=== PATIENT | male | born 1965 | race Caucasian/White ===

== ENCOUNTER → 2017-10-16 | Outpatient (CLI) | payer OTHER ==
--- NOTE | 2017-10-17 08:09 | US ---
Exam: Bilateral lower extremity arterial Doppler sonogram CLINICAL HISTORY: Peripheral vascular disease, diabetes TECHNIQUE: Doppler sonographic evaluation of the bilateral lower extremities was performed. FINDINGS: Right Submitted sonographic images reveal mild arteriosclerotic plaque in the superficial femoral artery with widely right lower extremity patent vessels. The following peak systolic flow flow velocity measurements were obtained: Common femoral artery velocity equals 68 centimeters per second , triphasic. Superficial femoral artery velocity equals 95 08/21/2002 centimeters per second , triphasic. Popliteal artery velocity equals 58 centimeters per second , triphasic. Peroneal artery velocity equals 64 centimeters per second , triphasic. Posterior tibial artery velocity equals 79 centimeters per second , triphasic. Dorsalis pedis artery velocity equals 79 centimeters per second , triphasic. Left Submitted sonographic images reveal normal color flow within the arteries of left lower extremity. Minimal plaque in the left superficial femoral artery without stenosis. Triphasic flow is seen throughout. The following peak systolic flow flow velocity measurements were obtained: Common femoral artery velocity equals 86 centimeters per second , triphasic. Superficial femoral artery velocity equals 7293 centimeters per second , triphasic. Popliteal artery velocity equals 63 centimeters per second , triphasic. Peroneal artery velocity equals 85 centimeters per second , triphasic. Posterior tibial artery velocity equals 74 centimeters per second , triphasic. Dorsalis pedis artery velocity equals 104 centimeters per second , triphasic. IMPRESSION: Normal triphasic flow in the lower extremity arteries with no significant stenosis. Electronically signed by: Schuyler Kitchen MD 10/17/2017 8:07 AM CDT
== END ==
LOC: US 08:05
PROVIDERS: ATTEND Family Medicine
DX: E11.51 Type 2 diabetes mellitus with diabetic peripheral angiopathy without gangrene (principal); I73.9 Peripheral vascular disease, unspecified

== ENCOUNTER → 2017-12-09 | Outpatient (CLI) | payer OTHER | LOC: GMAM 16:19 | PROVIDERS: ATTEND Family Medicine | DX: I50.22 Chronic systolic (congestive) heart failure (principal) ==

== ENCOUNTER → 2017-12-30 | Outpatient (CLI) | payer OTHER | LOC: GMAM 14:49 | PROVIDERS: ATTEND Family Medicine | DX: Z12.5 Encounter for screening for malignant neoplasm of prostate (principal) ==

== ENCOUNTER → 2018-06-19 | Outpatient (CLI) | payer OTHER ==
--- NOTE | 2018-06-19 09:10 | CT ---
EXAM DESCRIPTION: CT right elbow CLINICAL HISTORY: S42.422A. Fracture. Fall injury with elbow pain COMPARISON: None Available. TECHNIQUE: Spiral CT with multiplanar reformatted images. 3-D reconstructions This exam was performed according to our departmental dose-optimization program, which includes automated exposure control, adjustment of the mA and/or kV according to patient size and/or use of iterative reconstruction technique. FINDINGS: Highly comminuted fracture of the distal humeral metaphysis. Comminution at the metaphysis exiting the circumference of the metaphysis. Vertical intra-articular extension through the epiphysis at the articular margin with the ulna. No fracture involvement of the subchondral cortex of the radiocapitellar or ulnar trochlear articular surface otherwise. A small fragment of the humerus is impacted and overlap anteriorly in contact with the anterior margin of the radial head sagittal reformat image 33 Joint line osteophytes medial ulna trochlear articulation No fracture of the radius or ulna Large joint effusion IMPRESSION: Comminuted distal humeral fracture with intra-articular extension at the lateral margin of the ulnar trochlear articulation Electronically signed by: Torsten Johnson MD 06/19/2018 9:09 AM [facility]
== END ==
LOC: CT 08:08
PROVIDERS: ATTEND Orthopaedic Surgery
DX: S42.422A Displaced comminuted supracondylar fracture without intercondylar fracture of left humerus, initial encounter for closed fracture (principal)

== ENCOUNTER → 2019-01-26 | Outpatient (CLI) | payer OTHER | LOC: GMAM 14:21 | PROVIDERS: ATTEND Family Medicine | DX: Z12.5 Encounter for screening for malignant neoplasm of prostate (principal); I10 Essential (primary) hypertension; E11.9 Type 2 diabetes mellitus without complications ==

== ENCOUNTER 2019-05-10 05:37 | Day surgery (SDC) | payer OTHER ==
[2019-05-10] MEDS ORDERED: MOXIFLOXACIN HCL (OPHTH) 1 DROP DROPS ONE (05:56)
[2019-05-10] MEDS ORDERED: PROPARACAINE 0.5% OPHTH SOL 15 ML BTTL ONE (05:56)
[2019-05-10] MEDS ORDERED: TROP 1%/CYCLOPEN 1%/PHENYL 2% DROPS ONE (05:56)
[2019-05-10] MEDS ORDERED: MIDAZOLAM INJ 2 MG/2 ML VIAL ONE (10:11)
[2019-05-10] MEDS ORDERED: PROPARACAINE 0.5% OPHTH SOL 15 ML BTTL RIGHT_EYE ONE (10:18)
[2019-05-10] MEDS ORDERED: MOXIFLOXACIN HCL (OPHTH) 1 DROP DROPS RIGHT_EYE ONE ×2 (10:28→10:47)
[2019-05-10] MEDS ORDERED: DEXAMETHASONE 0.1% OPHTH SOL 1 DROP RIGHT_EYE ONE ×2 (10:29→10:48)
[2019-05-10] MEDS ORDERED: TOBRAMYCIN-DEXAMETH OPHTH SOL 1 DROP RIGHT_EYE ONE ×2 (10:29→10:48)
[2019-05-10] MEDS ORDERED: BRIMONIDINE 0.2% OPHTH DROPS RIGHT_EYE ONE ×2 (10:30→10:48)
[2019-05-10] MEDS ORDERED: LIDOCAINE 1% 2 ML VIAL INJ ONE (10:31)
== END 2019-05-10 11:44 | disposition home or self-care (01) ==
LOC: AMB 05:37
PROVIDERS: ATTEND Ophthalmology
DX: E11.36 Type 2 diabetes mellitus with diabetic cataract (principal); H25.041 Posterior subcapsular polar age-related cataract, right eye; I10 Essential (primary) hypertension; Z88.8 Allergy status to other drugs, medicaments and biological substances; Z79.899 Other long term (current) drug therapy
CPT/HCPCS: 00142; 36415; 36416; 66984; 82948; J2250

== ENCOUNTER → 2019-06-28 | Day surgery (SDC) | payer OTHER ==
[~2019-06-28] MED LIST: BRIMONIDINE 0.2% OPHTH DROPS LEFT_EYE ONE; DEXAMETHASONE 0.1% OPHTH SOL 1 DROP LEFT_EYE ONE; LIDOCAINE 1% MPF 2 ML VIAL INJ ONE; MIDAZOLAM INJ 2 MG/2 ML VIAL ONE; MOXIFLOXACIN HCL (OPHTH) 1 DROP DROPS LEFT_EYE ONE; PROPARACAINE 0.5% OPHTH SOL 15 ML BTTL LEFT_EYE ONE; PROPARACAINE 0.5% OPHTH SOL 15 ML BTTL ONE; TOBRAMYCIN SULF 0.3 % OPHT SOL 1 DROP LEFT_EYE ONE; TROP 1%/CYCLOPEN 1%/PHENYL 2% DROPS ONE
== END ==
LOC: AMB 05:16
PROVIDERS: ATTEND Ophthalmology
DX: E11.36 Type 2 diabetes mellitus with diabetic cataract (principal); H25.042 Posterior subcapsular polar age-related cataract, left eye; I10 Essential (primary) hypertension; Z88.8 Allergy status to other drugs, medicaments and biological substances; Z79.1 Long term (current) use of non-steroidal anti-inflammatories (NSAID); Z79.899 Other long term (current) drug therapy
CPT/HCPCS: 00142; 36416; 66984; 82948; J2250

== ENCOUNTER → 2020-04-26 | Outpatient (CLI) | payer OTHER | LOC: GMAM 14:34 | PROVIDERS: ATTEND Family Medicine | DX: Z12.5 Encounter for screening for malignant neoplasm of prostate (principal) ==

== ENCOUNTER 2020-05-01 20:58 | Emergency (ER) | payer OTHER ==
--- NOTE | 2020-05-01 21:22 | ED.PDOC ---
History of Present Illness - General Chief Complaint: Trauma Stated Complaint: fall, lac to head Time Seen by Provider: 05/01/20 20:59 Source: patient, RN notes reviewed, Vital Signs reviewed, family Exam Limitations: no limitations - History of Present Illness Initial Comments: Pt is a 54 yo male with PMH of HTN, DM, s/p placement of pacemaker and defibrilator several years ago and followed by Dr. Menjivar in [place] presents to ED after syncopal episode. Pt states about 1 hour [employer], he was standing in the kitchen talking to his and suddenly began to feel light headed and knew he was about to faint. states he said "Oh no, this is not going to be good," then passed out and fell to the floor hitting right side of his head. She denies any seizure like activity. States he was out for a few seconds then awoke with no postictal period. Pt reports pain to right side of head and small laceration to right scalp. He denies any CP, SOB, palpitations, recent illness, fever or NVD. Pt states he has had sudden episodes in the past where he gets light headed like this, but has not passed out before. Unsure of his last tetanus shot. Allergies/Adverse Reactions: Allergies Metoprolol Allergy (Severe, Verified 05/10/19 10:12) Home Medications: Ambulatory Orders Aspirin [Aspirin Adult Low Dose] 81 mg PO DAILY 05/10/19 Carvedilol 1 tablet PO BID 05/10/19 Certolizumab Pegol [Cimzia] 200 mg SC DAILY 05/10/19 Duloxetine HCl [Duloxetine Hydrochloride] 1 capsule PO DAILY 05/10/19 Exenatide [Bydureon] 2 mg SC WKLY 05/10/19 Folic Acid [(None)] 1 mg PO DAILY 05/10/19 Furosemide 1 tablet PO DAILY 05/10/19 Gabapentin 1 tablet PO TID 05/10/19 Glipizide [Glipizide ER] 1 tablet PO DAILY 05/10/19 HYDROcodone 7.5MG/APAP 325MG [[place] 7.5/325] 1 tab PO PRN PRN 05/10/19 Lisinopril 1 tablet PO DAILY 05/10/19 Metformin HCl [Metformin Hydrochloride] 1 tablet PO BID 05/10/19 Methotrexate Sodium [Methotrexate] 1.5 tablet PO DAILY 05/10/19 Naproxen [EC-Naproxen] 500 mg PO BID 05/10/19 Pravastatin Sodium 1 tablet PO DAILY 05/10/19 Sitagliptin Phosphate [Januvia] 1 tablet PO WKLY 05/10/19 Review of Systems - Review of Systems Constitutional: Denies: chills, fever, weakness EENTM: Denies: blurred vision, double vision, ear pain, nose congestion, throat pain Respiratory: Denies: cough, short of breath Cardiology: States: syncope. Denies: chest pain, palpitations Gastrointestinal/Abdominal: Denies: abdominal pain, diarrhea, nausea, vomiting Musculoskeletal: States: neck pain. Denies: back pain Neurological: States: headache - after fall All other Systems: Reviewed and Negative Past Medical History (General) - Patient Medical History Hx Congestive Heart Failure: No Hx Diabetes: Yes - 113 Hx MRSA: No Family Medical History - Family History Mother Family History: Unknown Physical Exam - Physical Exam General Appearance: Alert, Comfortable, No apparent distress Eye Exam: bilateral normal - PERRL Ears, Nose, Throat: normal pharynx Neck: non-tender, full range of motion, supple, other - No C, T, L spine tenderness Respiratory: chest non-tender, lungs clear, normal breath sounds, no respiratory distress Cardiovascular/Chest: regular rate, rhythm, no edema, no murmur Gastrointestinal/Abdominal: non tender, soft, no pulsatile mass Back Exam: normal inspection, no vertebral tenderness Extremity: normal range of motion, non-tender, normal inspection, other - FROM in all extremities. Pelvis stable Neurologic: matrix repairer II-XII nml as tested, no motor/sensory deficits, alert, normal mood/affect, oriented x 3 Skin Exam: other - 2 cm laceration to right anterior parietal scalp Progress - Progress Progress: 05/01/20 22:33 Pt presents following syncopal episode at home where he suddenly felt light headed and passed out. No seizure activity per , no incontinence or postictal period. He did strike head to kitchen floor. He has a superficial laceration to right parietal scalp that has been irrigated and approximated with glue. CT's performed to evaluate for ICH, cervical fracture and are negative. He has no neuro deficits on exam. Mnitor and EKG show a paced rhythm. VS have been stable in ED and pateint requesting to go home. I am attempting to contact his electrician third, Dr. Menjivar with [facility]. Pt states he had pacemaker placed in 2010 and battery was replaced in August of this year. 05/01/20 22:40 I have d/w Dr. Naylor, [facility]. Discussed history, exam and workup. He recommends to DC home and have him call Dr. Menjivar office for pacemaker clinic and they will interogate PM in the morning. Pt agrees with plan of care and feels comfortable going home. - Results/Orders Results/Orders: EKG- Ventricular paced rhythm, rate 89, wide QRS, no ST abnormality CT BRAIN EXAM DESCRIPTION: CT of the head without contrast CLINICAL HISTORY: syncope, trauma COMPARISON: None available TECHNIQUE: Axial CT of the head obtained from the skull apex to the skull base without contrast. FINDINGS: No acute intracranial hemorrhage identified. No mass, mass effect, shift of the midline, abnormal extra-axial fluid collection or CT evidence of acute ischemic change identified. The ventricular system and sulcal spaces are mildly enlarged compatible with mild cerebral atrophy. Scattered areas of hypodensity throughout the supratentorial white matter are nonspecific and may be related to chronic small vessel ischemic change. The visualized paranasal sinuses and the mastoids are clear. No skull fracture identified. Visualized orbits and globes are unremarkable. Atherosclerotic calcification of the intracranial internal carotid arteries. IMPRESSION: 1. No acute intracranial abnormality by CT criteria. CT CERVICAL SPINE CLINICAL HISTORY: syncope, trauma COMPARISON: None available TECHNIQUE: Axial CT of the cervical spine obtained without contrast. FINDINGS: Straightening of the cervical lordosis may be secondary to patient positioning. Fusion of the C3-C4 vertebral bodies. The atlantoaxial, atlantodental, and occipitoatlantal intervals are preserved. No fracture identified. Vertebral body height preserved. Prevertebral soft tissues are unremarkable. Mild to moderate multilevel loss of intervertebral disc height with endplate spondylosis, facet arthropathy, and uncovertebral spurring. Visualized skull base is intact. No fracture of the visualized facial bones. Visualized mastoid air cells and paranasal sinuses are well aerated. Visualized thyroid is unremarkable. No cervical lymphadenopathy. No pneumothorax in the visualized lung apices. Carotid artery atherosclerosis IMPRESSION: 1. No acute fracture or subluxation of the cervical spine. 2. Multilevel degenerative change of the spine. CHEST XRAY EXAM DESCRIPTION: Chest,1 View CLINICAL HISTORY: syncope, trauma COMPARISON: None. FINDINGS: Single frontal radiograph view of the chest. Cardiomediastinal silhouette: Left-sided pacemaker. Cardiomegaly. Low lung volumes. Lungs: No consolidation, pneumothorax, or pleural effusion. Bones: Degenerative change of the shoulders and spine. Upper abdomen: No abnormality identified. IMPRESSION: 1. No acute pulmonary process identified. 05/01/20 21:12 IV:Start .ONCE 05/01/20 21:13 Wound/Incision:Care PRN 05/01/20 21:15 EKG .ONCE Laboratory Results - last 24 hr 05/01/20 05/01/20 05/01/20 21:29 21:29 21:29 WBC 9.2 RBC 4.51 L Hgb 14.4 Hct 42.0 MCV 93.2 MCH 32.0 H MCHC 34.3 RDW 14.5 Plt Count 297 MPV 8.9 Absolute Neuts (auto) 5.00 Absolute Lymphs (auto) 3.30 Absolute Monos (auto) 0.60 Absolute Eos (auto) 0.30 Absolute Basos (auto) 0.10 Neutrophils % 54.2 Lymphocytes % 35.6 Monocytes % 6.3 Eosinophils % 3.2 Basophils % 0.7 Sodium 137 Potassium 3.3 L Chloride 97 L Carbon Dioxide 28 Anion Gap 15.3 BUN 16 Creatinine 0.88 BUN/Creatinine Ratio 18.2 Random Glucose 239 H Serum Osmolality 282.8 Calcium 8.8 Total Bilirubin 0.7 AST 23 ALT 37 Alkaline Phosphatase 111 Troponin I < 0.02 Serum Total Protein 7.7 Albumin 4.4 Globulin 3.3 Albumin/Globulin Ratio 1.3 Urine Color Urine Appearance Urine pH Ur Specific [place] Urine Protein Urine Glucose (UA) Urine Ketones Urine Blood Urine Nitrite Urine Bilirubin Urine Urobilinogen Ur Leukocyte Esterase Urine RBC Urine WBC Ur Epithelial Cells Urine Bacteria 05/01/20 21:55 WBC RBC Hgb Hct MCV MCH MCHC RDW Plt Count MPV Absolute Neuts (auto) Absolute Lymphs (auto) Absolute Monos (auto) Absolute Eos (auto) Absolute Basos (auto) Neutrophils % Lymphocytes % Monocytes % Eosinophils % Basophils % Sodium Potassium Chloride Carbon Dioxide Anion Gap BUN Creatinine BUN/Creatinine Ratio Random Glucose Serum Osmolality Calcium Total Bilirubin AST ALT Alkaline Phosphatase Troponin I Serum Total Protein Albumin Globulin Albumin/Globulin Ratio Urine Color Yellow Urine Appearance Sl cloudy Urine pH 5.5 Ur Specific [place] 1.020 Urine Protein Trace Urine Glucose (UA) >=1000 H Urine Ketones Negative Urine Blood Negative Urine Nitrite Negative Urine Bilirubin Negative Urine Urobilinogen 0.2 Ur Leukocyte Esterase Negative Urine RBC 0 Urine WBC 3-5 H Ur Epithelial Cells 1-3 Urine Bacteria 3+ H Procedures - Laceration/Wound Repair Right Head Wound Length (cm): 2 Wound's Depth, Shape: superficial, linear Wound Explored: clean Irrigated w/ Saline (cc's): 500 Wound Repaired With: dermabond Progress: superficial laceration to right scalp was irrigated extensively and approximated with dermabond Departure - Departure Clinical Impression: Essential hypertension Syncope Qualifiers: Syncope type: unspecified Qualified Code(s): R55 - Syncope and collapse Head injury Qualifiers: Encounter type: initial encounter Qualified Code(s): S09.90XA - Unspecified injury of head, initial encounter Scalp laceration Qualifiers: Encounter type: initial encounter Qualified Code(s): S01.01XA - Laceration without foreign body of scalp, initial encounter Time of Disposition: 22:42 Disposition: Discharge to Home or Self Care Condition: Good Departure Forms: ED Discharge - Pt. Copy, Patient Portal Self Enrollment Instructions: DI for Trauma, Syncope (Fainting) (DC) Diet: resume usual diet Activity: increase activity as tolerated Referrals: Torsten Toscano MD [Primary Care Provider] - 1-2 Days Home Medications: Ambulatory Orders Aspirin [Aspirin Adult Low Dose] 81 mg PO DAILY 05/10/19 Carvedilol 1 tablet PO BID 05/10/19 Certolizumab Pegol [Cimzia] 200 mg SC DAILY 05/10/19 Duloxetine HCl [Duloxetine Hydrochloride] 1 capsule PO DAILY 05/10/19 Exenatide [Bydureon] 2 mg SC WKLY 05/10/19 Folic Acid [(None)] 1 mg PO DAILY 05/10/19 Furosemide 1 tablet PO DAILY 05/10/19 Gabapentin 1 tablet PO TID 05/10/19 Glipizide [Glipizide ER] 1 tablet PO DAILY 05/10/19 HYDROcodone 7.5MG/APAP 325MG [[place] 7.5/325] 1 tab PO PRN PRN 05/10/19 Lisinopril 1 tablet PO DAILY 05/10/19 Metformin HCl [Metformin Hydrochloride] 1 tablet PO BID 05/10/19 Methotrexate Sodium [Methotrexate] 1.5 tablet PO DAILY 05/10/19 Naproxen [EC-Naproxen] 500 mg PO BID 05/10/19 Pravastatin Sodium 1 tablet PO DAILY 05/10/19 Sitagliptin Phosphate [Januvia] 1 tablet PO WKLY 05/10/19 Additional Instructions: Call Dr. Menjivar's office in the morning and the pacemaker clinic will interogate pacemaker. You will need to follow up with Dr. Menjivar in the next 48 hours.
[2020-05-01] MEDS ORDERED: CHLORHEXIDINE GLUCONATE 4 % 15 ML UD TOP ONE (21:29)
[2020-05-01] MEDS ORDERED: SODIUM CHLORIDE 0.9% (FLUSH) 10 ML SYG ONE (21:57)
--- NOTE | 2020-05-01 22:05 | RAD ---
EXAM DESCRIPTION: Chest,1 View CLINICAL HISTORY: syncope, trauma COMPARISON: None. FINDINGS: Single frontal radiograph view of the chest. Cardiomediastinal silhouette: Left-sided pacemaker. Cardiomegaly. Low lung volumes. Lungs: No consolidation, pneumothorax, or pleural effusion. Bones: Degenerative change of the shoulders and spine. Upper abdomen: No abnormality identified. IMPRESSION: 1. No acute pulmonary process identified. Electronically signed by: Patricio Albright 05/01/2020 10:03 PM CDT
--- NOTE | 2020-05-01 22:17 | CT ---
EXAM DESCRIPTION: CT of the head without contrast CLINICAL HISTORY: syncope, trauma COMPARISON: None available TECHNIQUE: Axial CT of the head obtained from the skull apex to the skull base without contrast. FINDINGS: No acute intracranial hemorrhage identified. No mass, mass effect, shift of the midline, abnormal extra-axial fluid collection or CT evidence of acute ischemic change identified. The ventricular system and sulcal spaces are mildly enlarged compatible with mild cerebral atrophy. Scattered areas of hypodensity throughout the supratentorial white matter are nonspecific and may be related to chronic small vessel ischemic change. The visualized paranasal sinuses and the mastoids are clear. No skull fracture identified. Visualized orbits and globes are unremarkable. Atherosclerotic calcification of the intracranial internal carotid arteries. IMPRESSION: 1. No acute intracranial abnormality by CT criteria. This exam was performed according to our departmental dose-optimization program, which includes automated exposure control, adjustment of the mA and/or kV according to patient size and/or use of iterative reconstruction technique. Electronically signed by: Patricio Albright 05/01/2020 10:16 PM CDT
--- NOTE | 2020-05-01 22:22 | CT ---
EXAM DESCRIPTION: CT of the cervical spine without contrast. CLINICAL HISTORY: syncope, trauma COMPARISON: None available TECHNIQUE: Axial CT of the cervical spine obtained without contrast. FINDINGS: Straightening of the cervical lordosis may be secondary to patient positioning. Fusion of the C3-C4 vertebral bodies. The atlantoaxial, atlantodental, and occipitoatlantal intervals are preserved. No fracture identified. Vertebral body height preserved. Prevertebral soft tissues are unremarkable. Mild to moderate multilevel loss of intervertebral disc height with endplate spondylosis, facet arthropathy, and uncovertebral spurring. Visualized skull base is intact. No fracture of the visualized facial bones. Visualized mastoid air cells and paranasal sinuses are well aerated. Visualized thyroid is unremarkable. No cervical lymphadenopathy. No pneumothorax in the visualized lung apices. Carotid artery atherosclerosis IMPRESSION: 1. No acute fracture or subluxation of the cervical spine. 2. Multilevel degenerative change of the spine. This exam was performed according to our departmental dose-optimization program, which includes automated exposure control, adjustment of the mA and/or kV according to patient size and/or use of iterative reconstruction technique. Electronically signed by: Patricio Albright 05/01/2020 10:21 PM CDT
[2020-05-01] MEDS ORDERED: HYDROcodone 7.5MG/APAP 325MG 1 EA TAB PO ONE (22:57)
[2020-05-01 23:33] VITALS: BP 133/86; TEMP 97.9; O2SAT 93
== END 2020-05-01 23:20 | disposition home or self-care (01) ==
LOC: ER 20:58
DX: S01.01XA Laceration without foreign body of scalp, initial encounter (principal); S09.90XA Unspecified injury of head, initial encounter; R55 Syncope and collapse; I10 Essential (primary) hypertension; M47.812 Spondylosis without myelopathy or radiculopathy, cervical region; E11.9 Type 2 diabetes mellitus without complications; Z95.0 Presence of cardiac pacemaker; Z79.899 Other long term (current) drug therapy; Z79.84 Long term (current) use of oral hypoglycemic drugs; Z79.82 Long term (current) use of aspirin; Z88.8 Allergy status to other drugs, medicaments and biological substances; Y93.89 Activity, other specified; Y92.000 Kitchen of unspecified non-institutional (private) residence as the place of occurrence of the external cause
CPT/HCPCS: 36415; 70450; 71045; 72125; 80053; 81001; 84484; 85025; 93005; A4216

== ENCOUNTER → 2020-05-04 | Outpatient (CLI) | payer OTHER ==
--- NOTE | 2020-05-05 08:26 | CT ---
CT left elbow without contrast INDICATION: Elbow injuries elbow pain arthritis fracture dislocation TECHNIQUE: Helical CT images through the left elbow with multiplanar and 3-D reformats This exam was performed according to our departmental dose-optimization program, which includes automated exposure control, adjustment of the mA and/or kV according to patient size and/or use of iterative reconstruction technique. FINDINGS: Fracture distal humerus with severe posterior displacement of the capitellum trochlea and epicondyles related to supracondylar fracture and intercondylar fracture. Advanced osteoarthrosis throughout the elbow with multiple intra-articular fragments and prominent fluid/synovitis. The capitellum remains articulated with the radial head and similar residual articulation of the trochlea and ulna. IMPRESSION: Supracondylar and intercondylar fracture distal humerus with fragmentation and posterior displacement Diffuse background osteoarthrosis of the elbow Electronically signed by: Brian Veliz MD 05/05/2020 8:25 AM CDT
== END ==
LOC: MRI 09:00
PROVIDERS: ATTEND Family Medicine
DX: S42.492A Other displaced fracture of lower end of left humerus, initial encounter for closed fracture (principal); M19.022 Primary osteoarthritis, left elbow

== ENCOUNTER 2020-05-08 05:41 | Day surgery (SDC) | payer OTHER ==
[2020-05-08] MEDS ORDERED: PROPARACAINE 0.5% OPHTH SOL 15 ML BTTL BOTH_EYES ONE (05:42)
[2020-05-08] MEDS ORDERED: TOBRAMYCIN SULF 0.3 % OPHT SOL 1 DROP OPHTH ONE (05:42)
[2020-05-08] MEDS ORDERED: TROP1%/CYCLOPEN 1%/PHENYL 2.5% DROPS OPHTH ONE (05:42)
== END 2020-05-08 10:52 | disposition home or self-care (01) ==
LOC: AMB 05:41
PROVIDERS: ATTEND Ophthalmology
DX: E11.36 Type 2 diabetes mellitus with diabetic cataract (principal); H26.493 Other secondary cataract, bilateral; I10 Essential (primary) hypertension; Z88.8 Allergy status to other drugs, medicaments and biological substances; Z79.84 Long term (current) use of oral hypoglycemic drugs; Z79.899 Other long term (current) drug therapy